=== PATIENT | female | born 1990 | race Caucasian/White ===

== ENCOUNTER 2024-01-18 11:12 | Outpatient (CLI) | payer OTHER, SELFPAY ==
[2024-01-19 04:59] LABS: Progesterone 4.8 ng/mL
== END 2024-01-18 11:13 | disposition home or self-care (01) ==
PROVIDERS: PCP Family Medicine; Visit Provider Obstetrics & Gynecology
DX: N97.0 Female infertility associated with anovulation (principal)
CPT/HCPCS: 36415; 84144

== ENCOUNTER 2024-01-26 10:46 | Outpatient (CLI) | payer OTHER, SELFPAY ==
[2024-01-26 11:26] LABS: Basophils Percent Auto 0.5 % (0.2-1.2); Eosinophils Absolute Auto 0.1 K/mm3 (0-0.3); Eosinophils Percent Auto 0.8 % (0-4.4); Hematocrit 37.3 % (37.0-47.0); Hemoglobin 12.6 g/dL (12.0-15.0); Immature Granulocyte Absolute 0.01 K/mm3 (0.00-0.031); Immature Granulocyte Percent A 0.2 % (0-0.5); Lymphocytes Absolute Auto 1.36 K/mm3 (0.9-3.2); Lymphocytes Percent Auto 22.4 % (18.3-44.2); Mean Corpuscular HGB Conc 33.8 g/dl (32-36); Mean Corpuscular Hemoglobin 29.5 pg (26-34); Mean Corpuscular Volume 87.4 fl (80-100); Mean Platelet Volume 8.8 fl (7.4-10.4); Monocytes Absolute Auto 0.5 K/mm3 (0.1-0.6); Monocytes Percent Auto 7.4 % (2.6-8.5); Neutrophils Absolute Auto 4.2 K/mm3 (1.3-6.7); Neutrophils Percent Auto 68.7 % (45.5-73.1); Platelet Count Result 295 k/mm3 (150-375); Red Blood Count 4.27 M/mm3 (4.2-5.4); Red Cell Distribution Width 13.2 % (11.5-14.5); White Blood Count 6.1 K/mm3 (4.5-10.0)
[2024-01-26 11:38] LABS: Iron 64 ug/dL (37-170)
[2024-01-26 11:43] LABS: Beta HCG Quantitative < 2.39 mIU/ML
[2024-01-26 11:48] LABS: Percent Iron Saturation 19 % (20-50)
[2024-01-26 11:50] LABS: Hemoglobin A1C 4.8 % (<5.7)
[2024-01-29 06:43] LABS: DHEA-Sulfate 73 mcg/dL (19-237); FSH 5.9 mIU/mL; Prolactin 7.5 ng/mL
[2024-02-01 10:53] LABS: Testosterone Free 1.4 pg/mL (0.1-6.4); Testosterone Total 15 ng/dL (2-45)
[2024-02-01 19:59] LABS: Estradiol, Ultrasensitive 20 pg/mL
[2024-02-07 21:29] LABS: Free Insulin 6.5 uIU/mL (1.5-14.9)
== END 2024-01-26 10:47 | disposition home or self-care (01) ==
PROVIDERS: PCP Family Medicine; Visit Provider Obstetrics & Gynecology
DX: N92.0 Excessive and frequent menstruation with regular cycle (principal); N97.0 Female infertility associated with anovulation; E66.9 Obesity, unspecified
CPT/HCPCS: 36415; 82627; 82670; 83001; 83036; 83498; 83525; 83527; 83540; 83550; 84146; 84402; 84403; 84443; 84702; 85025

== ENCOUNTER 2024-02-16 10:12 | Outpatient (CLI) | payer OTHER, SELFPAY ==
[2024-02-18 02:29] LABS: Progesterone 16.5 ng/mL
== END 2024-02-16 10:13 | disposition home or self-care (01) ==
PROVIDERS: PCP Family Medicine; Visit Provider Obstetrics & Gynecology
DX: N97.0 Female infertility associated with anovulation (principal)
CPT/HCPCS: 36415; 84144